=== PATIENT | male | born 1995 | race Caucasian/White ===

== ENCOUNTER 2017-04-23 03:21 | Emergency (ER) | payer OTHER ==
--- NOTE | 2017-04-23 03:50 | PDOC ---
History of Present Illness - General Chief Complaint: Pain Stated Complaint: WRIST PAIN Time Seen by Provider: 04/23/17 03:49 History Source: Patient Exam Limitations: No Limitations - History of Present Illness Initial Comments: CHIEF COMPLAINT: 21 y/o afebrile male with no significant PMH asthma c/o left wrist pain x 2 months. HISTORY OF PRESENT ILLNESS: The patient states that for the past 2 months he's had left wrist pain and states his left thumb often gets "stuck" but normally returns to normal on its own. Today, while playing basketball his wrist began hurting and his thumb got stuck but he cannot get it back to normal. He denies fall onto hand/wrist. Vital signs on arrival are within normal limits. REVIEW OF SYSTEMS: GENERAL/CONSTITUTIONAL: No fever/chills. No weakness. No weight change. MUSCULOSKELETAL: +left wrist pain. No neck or back pain. SKIN: No rash or easy bruising. NEUROLOGIC: No headache, vertigo, loss of consciousness, or loss of sensation. PHYSICAL EXAM: VITAL_SIGNS: within normal limits GENERAL_APPEARANCE: alert, cooperative, mild obvious discomfort. MENTAL_STATUS: speech clear, oriented X 3, responds appropriately to questions. NEURO: motor intact and sensory intact in injured extremity. EXTREMITIES: good pulse in injured extremity. Left snuffbox tenderness with palpation. No swelling or obvious deformities to affected hand/wrist. Full pronation, supination of left forearm. Full ROM of digits 2-5. 1st digit of left hand stuck in extension. SKIN: warm, dry, good color. Past History - Past Medical History Allergies/Adverse Reactions: Allergies Allergy/AdvReac Type Severity Reaction Status Date / Time No Known Allergies Allergy Verified 04/23/17 03:46 - Psycho/Social/Smoking Cessation Hx Suicidal Ideation: No Smoking History: Never smoked Have you smoked in the past 12 months: No Information on smoking cessation initiated: No Hx Alcohol Use: No Drug/Substance Use Hx: No *Physical Exam - Vital Signs Last Vital Signs Temp Pulse Resp BP Pulse Ox 98.5 F 70 14 127/78 99 04/23/17 03:46 04/23/17 03:46 04/23/17 03:46 04/23/17 03:46 04/23/17 03:46 Medical Decision Making - Medical Decision Making A/P: 21 y/o afebrile male with atraumatic left wrist pain. Plan is as follows: 1. xray left wrist Left wrist xray IMPRESSION: (wet read) No acute fracture or dislocation. Suspect the patient has trigger finger of his left thumb, given that he states he often pops it into and out of place. Will give PO Motrin, splint the thumb and refer to ortho for follow up. Pt instructed to return to the ER with any worsening or concerning symptoms. The patient verbalizes understanding of all instructions, has no further questions and is awaiting discharge. *DC/Admit/Observation/Transfer Diagnosis at time of Disposition: Trigger finger of left thumb Left wrist sprain Qualifiers: Encounter type: initial encounter Qualified Code(s): S63.502A - Unspecified sprain of left wrist, initial encounter - Discharge Dispostion Disposition: HOME Condition at time of disposition: Good - Referrals Referrals: Hari Leyva MD [Staff Physician] - Call tomorrow - Patient Instructions Printed Discharge Instructions: DI for Trigger Finger, How To Perform RICE ( Rest, Ice, Compress, Elevate) Additional Instructions: Discharge Instructions: -Take 600mg of [id number] Motrin every 6 hours with food for pain. -Use splint to help with pain -Follow up with Dr. Leyva within 1 week -Avoid activities where you have to do repetitive movements with your left hand/ wrist - Post Discharge Activity Work/School Note: Back to Work
[2017-04-23 04:13] VITALS: BP 127/78; PULSE 70; TEMP 98.5; BMI 23.8
--- NOTE | 2017-04-23 05:15 | PDOC ---
*Physical Exam - Vital Signs Last Vital Signs Temp Pulse Resp BP Pulse Ox 98.5 F 70 14 127/78 99 04/23/17 03:46 04/23/17 03:46 04/23/17 03:46 04/23/17 03:46 04/23/17 03:46 Medical Decision Making - Medical Decision Making 04/23/17 05:14 agree with care from FRANKIE Bedoya *DC/Admit/Observation/Transfer Diagnosis at time of Disposition: Left wrist sprain Qualifiers: Encounter type: initial encounter Qualified Code(s): S63.502A - Unspecified sprain of left wrist, initial encounter
[2017-04-23] MEDS ORDERED: IBUPROFEN 600 MG TABLET (FP) PO ONE ×2 (05:23→05:30)
== END 2017-04-23 05:53 | disposition home or self-care (01) ==
LOC: JER 03:21
PROC: 2W3KX1Z Immobilization of Left Finger using Splint (ICD-10-PCS; principal; 2017-04-23)
DX: M65.312 Trigger thumb, left thumb (principal); S63.502A Unspecified sprain of left wrist, initial encounter; X50.0XXA Overexertion from strenuous movement or load, initial encounter; Y93.67 Activity, basketball; Y92.310 Basketball court as the place of occurrence of the external cause; Y99.8 Other external cause status
CPT/HCPCS: 73110-TC-LT; 73130-TC-LT; 99281-25